=== PATIENT | male | born 1990 | race Caucasian/White ===

== ENCOUNTER 2016-10-27 09:16 | Emergency (ER) | payer OTHER ==
[2016-10-27 09:30] VITALS: BP 147/77
--- NOTE | 2016-10-27 10:32 | XRAY Preliminary Report ---
Exam: XR Ankle 3 View LT IMPRESSION: Nondisplaced oblique fibular fracture with moderate soft tissue swelling. [facility] SITE ID: [id number]
--- NOTE | 2016-10-27 10:34 | XRAY Report ---
EXAM: LEFT ANKLE RADIOGRAPHY EXAM DATE: 10/27/2016 10:13 AM. CLINICAL HISTORY: Ankle pain post injury. COMPARISON: None. TECHNIQUE: 3 views. FINDINGS: Bones: There is an oblique fibular fracture. Joints: Ankle mortise is grossly aligned. Soft Tissues: Moderate swelling is noted about the ankle. IMPRESSION: Nondisplaced oblique fibular fracture with moderate soft tissue swelling. [facility] Referring Provider Line: [phone] SITE ID: [id number]
[2016-10-27] MEDS ORDERED: IBUPROFEN 800 MG TABLET PO STA (11:07)
--- NOTE | 2016-10-27 11:07 | ED Physician Documentation ---
PD HPI LOWER EXT INJURY - Stated complaint Stated Complaint: LT ANKLE INJURY - Chief complaint Chief Complaint: Ext Problem - History obtained from History obtained from: Patient - History of Present Illness PD HPI LOW EXT INJURY LOCATION: Left, Ankle Type of injury: Fall, Twist Where injury occurred: Home Timing - onset: Last night Worsened by: Moving, Palpating, Other (Weightbearing) Associated symptoms: Swelling. No: Weakness, Numbness Similar symptoms before: Has not had sx before - Additional information Additional information: The patient is a 26-year-old male who slipped on stairs last night twisting his left ankle when he "landed awkwardly." He denies any other injuries. He complains of pain when trying to weight-bear. Review of Systems Constitutional: denies: Fever Cardiac: denies: Chest pain / pressure Respiratory: denies: Dyspnea GI: denies: Abdominal Pain, Vomiting Musculoskeletal: reports: Joint pain (left ankle), Extremity swelling (left ankle). denies: Back pain Neurologic: denies: Focal weakness, Numbness, Head injury PD PAST MEDICAL HISTORY - Past Medical History Past Medical History: No - Past Surgical History Past Surgical History: No - Present Medications Home Medications: Ambulatory Orders Medication Instructions Recorded Confirmed HYDROcod/ACETAM 5/325 [[place] 5/325] 1 - 2 ea PO Q6H PRN #20 tablet 10/27/16 - Allergies Allergies/Adverse Reactions: Allergies Allergy/AdvReac Type Severity Reaction Status Date / Time No Known Drug Allergies Allergy Verified 10/27/16 09:30 - Social History Does the pt smoke?: No Smoking Status: Never smoker - Immunizations Immunizations are current?: Yes PD ED PE NORMAL - Vitals Vital signs reviewed: Yes (Mild hypertension initially.) - General General: Alert and oriented X 3, Well developed/nourished - HEENT HEENT: Atraumatic - Neck Neck: No bony TTP - Respiratory Respiratory: No respiratory distress - Back Back: No spinal TTP - Derm Derm: No rash - Extremities Extremities: No calf tenderness / cord, Other (There is swelling at the lateral aspect of the left ankle, with associated tenderness to palpation. There is no tenderness at the fifth metatarsal base, or the proximal fibula. There is mild tenderness to palpation at the medial malleolus, but without swelling. Distal neurovascular is intact.) - Neuro Neuro: Alert and oriented X 3, No motor deficit, No sensory deficit Results - Vitals Vitals: Oxygen O2 Source Room air - Rads (name of study) Left ankle Radiology: Prelim report reviewed, EMP read contemporaneously, See rad report ( Nondisplaced oblique fibular fracture with moderate soft tissue swelling.) Procedures - Splint (location) left lower extremity Splint applied by: Physician Type of splint: Fiberglass, Short leg, Posterior, Stirrup Other: Patient tolerated well, No complications, Neurovascular intact, Crutches provided PD MEDICAL DECISION MAKING - ED course Complexity details: reviewed results, re-evaluated patient, considered differential, d/w patient ED course: The patient's presentation is significant for a nondisplaced oblique left distal fibular fracture. Treatment in the emergency department included administration of ibuprofen 800 mg orally, and application of a fiberglass posterior and stirrup splint. Crutches were dispensed. He is being discharged with prescription for Vicodin, 20 tablets. I discussed with him the results of imaging study, importance of orthopedic follow-up, as well as potentially worrisome signs or symptoms that should prompt reevaluation in the emergency department. Departure - Departure Disposition: 01 Home, Self Care Clinical Impression: Closed fracture of left distal fibula Qualifiers: Encounter type: initial encounter Fracture morphology: other fracture Qualified Code(s): S82.832A - Other fracture of upper and lower end of left fibula, initial encounter for closed fracture Condition: Stable Instructions: ED Cast Care Fiberglass, ED Fx Lower Ext Follow-Up: [facility] [Provider Group] Prescriptions: HYDROcod/ACETAM 5/325 [[place] 5/325] 1 - 2 ea PO Q6H PRN #20 tablet PRN Reason: Pain Comments: Keep your left leg elevated as much of the time as possible. Apply icepack intermittently for the next 4 or 5 days. Keep the splint clean and dry. Use ibuprofen, up to 800 mg 3 times daily for 10 inflammatory effect. You can use Vicodin as prescribed if needed for pain. Use crutches when walking. [place] Call today to schedule an appointment. Return to the emergency department if you develop increasing pain despite the pain medication, or otherwise worsening symptoms. Discharge Date/Time: 10/27/16 11:23
[2016-10-27] MEDS ORDERED: IBUPROFEN 800 MG TABLET PO ONE (11:18)
== END 2016-10-27 11:23 | disposition home or self-care (01) ==
LOC: ED 09:16
DX: S82.832A Other fracture of upper and lower end of left fibula, initial encounter for closed fracture (principal); W10.9XXA Fall (on) (from) unspecified stairs and steps, initial encounter; X50.1XXA Overexertion from prolonged static or awkward postures, initial encounter
CPT/HCPCS: 29515; 73610; 99283; A9270

== ENCOUNTER 2016-11-16 06:00 | Day surgery (SDC) | payer OTHER ==
[2016-11-16] MEDS ORDERED: ACETAMINOPHEN 1,000 MG/100 ML 100 ML IV ONE (06:37)
[2016-11-16] MEDS ORDERED: CELECOXIB 100 MG CAPSULE PO ONE (06:38)
[2016-11-16] MEDS ORDERED: ceFAZolin 2 GM/50 ML 50 ML IV ONE (06:38)
[2016-11-16] MEDS ORDERED: LACTATED RINGERS 1,000 ML IV ONE ×3 (06:43→10:39)
[2016-11-16] MEDS ORDERED: ONDANSETRON 4 MG/2 ML VIAL IVP ONE (07:45)
[2016-11-16] MEDS ORDERED: PROPOFOL 200 MG/20 ML VIAL IVP ONE (07:45)
[2016-11-16] MEDS ORDERED: ROPIVACAINE 0.5% PF 20 ML AMPULE EP ONE (07:45)
[2016-11-16] MEDS ORDERED: fentaNYL 250 MCG/5 ML VIAL IVP ONE (07:45)
[2016-11-16] MEDS ORDERED: MIDAZOLAM 2 MG/2 ML VIAL IVP ONE (07:45)
[2016-11-16] MEDS ORDERED: DEXAMETHASONE 4 MG/ML VIAL IVP ONE (07:45)
[2016-11-16] MEDS ORDERED: LIDOCAINE-MPF 2% 5 ML VIAL IM ONE (07:45)
[2016-11-16] MEDS ORDERED: ROCURONIUM 50 MG/5 ML VIAL IVP ONE (07:45)
[2016-11-16] MEDS ORDERED: BUPIVACAINE 0.25% PF 30 ML VIAL SUBQ ONE ×2 (07:49→10:25)
[2016-11-16] MEDS ORDERED: HYDROmorphone 1 MG/ML SYRINGE ONE (10:38)
[2016-11-16] MEDS ORDERED: oxyCOD/ACETAMIN 5 MG/325 MG TABLET PO ONE (11:45)
== END 2016-11-16 06:01 | disposition home or self-care (01) ==
PROC: 0QSK04Z Reposition Left Fibula with Internal Fixation Device, Open Approach (ICD-10-PCS; principal; 2016-11-16 07:30)
DX: S82.832A Other fracture of upper and lower end of left fibula, initial encounter for closed fracture (principal); W10.9XXA Fall (on) (from) unspecified stairs and steps, initial encounter; Y92.133 Barracks on military base as the place of occurrence of the external cause
CPT/HCPCS: 27792; 73600; 73610; A9270; C1713; J0131; J0690; J1170; J3010; J7120

== ENCOUNTER 2017-05-24 15:18 | Emergency (ER) | payer OTHER ==
[2017-05-24 15:25] VITALS: BP 142/89
--- NOTE | 2017-05-24 17:11 | ED Physician Documentation ---
PD HPI LOWER EXT INJURY - Stated complaint Stated Complaint: LEFT KNEE INJ - Chief complaint Chief Complaint: Ext Problem - History obtained from History obtained from: Patient - History of Present Illness PD HPI LOW EXT INJURY LOCATION: Left, Knee Type of injury: Other (he had gone on longer hike of 11 miles with some up and down hill, and felt pain gradually onset while downhill hiking and this has persisted with walking and steps mostly.). No: Fall, Blunt / blow Timing - onset: How many days ago (5) Timing - duration: Days (5) Timing - details: Gradual onset, Still present, Waxing and waning Improved by: Rest Worsened by: Palpating, Other (stepping up and down mostly) Associated symptoms: No: Weakness, Numbness, Swelling Similar symptoms before: Has not had sx before Recently seen: Not recently seen Review of Systems Constitutional: denies: Fever, Chills Skin: denies: Rash, Lesions Musculoskeletal: denies: Extremity swelling Neurologic: denies: Focal weakness, Numbness PD PAST MEDICAL HISTORY - Past Medical History Cardiovascular: None Respiratory: None Endocrine/Autoimmune: None GI: GERD : None HEENT: None Psych: None Musculoskeletal: Other Derm: None - Past Surgical History Past Surgical History: No - Present Medications Home Medications: Ambulatory Orders Medication Instructions Recorded Confirmed Naproxen [Naprosyn] 500 mg PO BID PRN #20 tablet 05/24/17 Tramadol HCl 50 mg PO Q6H PRN #20 tablet 05/24/17 - Allergies Allergies/Adverse Reactions: Allergies Allergy/AdvReac Type Severity Reaction Status Date / Time No Known Drug Allergies Allergy Verified 05/24/17 15:25 - Social History Does the pt smoke?: No Smoking Status: Never smoker - Immunizations Immunizations are current?: Yes PD ED PE NORMAL - Vitals Vital signs reviewed: Yes - General General: Alert and oriented X 3, No acute distress, Well developed/nourished - Derm Derm: Normal color, Warm and dry, No rash - Extremities Extremities: Other (no effusion. He has point tenderness medial anterior knee over the pes anserine bursa. No effusion. Legiament and meniscal stress testing without laxity nor pain. ) - Neuro Neuro: No motor deficit, No sensory deficit Results - Vitals Vitals: Oxygen O2 Source Room air PD MEDICAL DECISION MAKING - ED course Complexity details: considered differential (the pain came after overuse hiking and no abrupt injury. It is hurting in area of pes bursa and no laxity/pain on main knee ligament testing. Consider meniscal pain as well, but negative meniscal stress testing. ), d/w patient Departure - Departure Disposition: 01 Home, Self Care Clinical Impression: Pes anserinus bursitis of left knee Condition: Stable Record reviewed to determine appropriate education?: Yes Instructions: ED Bursitis Follow-Up: [facility] [Provider Group] Prescriptions: Naproxen [Naprosyn] 500 mg PO BID PRN #20 tablet PRN Reason: Pain Tramadol HCl 50 mg PO Q6H PRN #20 tablet PRN Reason: Pain Comments: Use a knee brace when up and around ambulating. No vigorous activity such as hiking or running for several days at least. You can set the knee brace to range from full extension to 30 flexion. This should provide some support for the muscle tendon and decrease irritation of the bursa. Use naproxen twice daily for the next 7-10 days. Add Tylenol or tramadol if needed for pain. Follow-up with primary care or orthopedics if not improved over the next 5-6 days. Your main ligaments (collateral and cruciates) and meniscus do not feel injured, which is a good thing. Discharge Date/Time: 05/24/17 17:46
[2017-05-24] MEDS ORDERED: NAPROXEN 250 MG TABLET PO STA (17:28)
[2017-05-24] MEDS ORDERED: NAPROXEN 250 MG TABLET PO ONE (17:35)
== END 2017-05-24 17:46 | disposition home or self-care (01) ==
LOC: ED 15:18
DX: M71.562 Other bursitis, not elsewhere classified, left knee (principal)
CPT/HCPCS: 99283; A9270; 87491; 87591

== ENCOUNTER 2017-11-01 06:14 | Emergency (ER) | payer OTHER ==
[2017-11-01 06:23] VITALS: BP 130/76
[2017-11-01 06:32] LABS: BILIRUBIN,URINE NEGATIVE (NEGATIVE); GLUCOSE, URINE (UA) NEGATIVE (NEGATIVE); KETONES,URINE (UA) NEGATIVE (NEGATIVE); LEUKOCYTE ESTERASE, URINE NEGATIVE (NEGATIVE); NITRITE,URINE NEGATIVE (NEGATIVE); OCCULT BLOOD,URINE NEGATIVE (NEGATIVE); PROTEIN,URINE NEGATIVE (NEGATIVE); UROBILINOGEN,URINE 0.2 (NORMAL) E.U./dL (NORMAL)
[2017-11-01 06:33] LABS: CLARITY,URINE CLEAR (CLEAR)
--- NOTE | 2017-11-01 06:51 | ED Physician Documentation ---
PD HPI BACK PAIN - Stated complaint Stated Complaint: body aches - Chief complaint Chief Complaint: Back Pain - History obtained from History obtained from: Patient - History of Present Illness Timing - onset: Last night Timing - duration: Hours Timing - details: Gradual onset, Still present Location: Mid Quality: Pain, Spasm, Aching Associated symptoms: No: Fever, Weakness, Numbness, Incontinent of urine, Unable to urinate, Hematuria, Incontinent of stool Improves with: Rest, Position Worsened by: Movement, Twisting Contributing factors: Other (snowboarding 2 days ago) Similar symptoms before: Diagnosis (back strain) Recently seen: Not recently seen - Additional information Additional information: 27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 He did do some snowboarding 2 days ago and he did not think he injured himself significantly at the time and was not having pain in his back.He does not otherwise feel ill and is has no other specific symptoms. Review of Systems Constitutional: reports: Myalgias. denies: Fever, Chills Eyes: denies: Decreased vision Ears: denies: Ear pain Nose: denies: Congestion Throat: denies: Sore throat Cardiac: denies: Chest pain / pressure, Palpitations Respiratory: denies: Dyspnea, Cough GI: reports: Nausea, Vomiting (once last night similar to prior). denies: Abdominal Pain : denies: Dysuria, Frequency, Incontinent Skin: denies: Rash Musculoskeletal: reports: Back pain. denies: Neck pain, Extremity pain Neurologic: denies: Generalized weakness, Focal weakness, Numbness PD PAST MEDICAL HISTORY - Past Medical History Cardiovascular: None Respiratory: None Endocrine/Autoimmune: None GI: GERD : None HEENT: None Psych: None Musculoskeletal: Other Derm: None - Past Surgical History Past Surgical History: Yes - Present Medications Home Medications: Ambulatory Orders Medication Instructions Recorded Confirmed Naproxen [Naprosyn] 500 mg PO BID PRN #20 tablet 05/24/17 Tramadol HCl 50 mg PO Q6H PRN #20 tablet 05/24/17 - Allergies Allergies/Adverse Reactions: Allergies Allergy/AdvReac Type Severity Reaction Status Date / Time No Known Drug Allergies Allergy Verified 05/24/17 15:25 - Social History Does the pt smoke?: No Smoking Status: Never smoker Does the pt drink ETOH?: Yes Does the pt have substance abuse?: No - Immunizations Immunizations are current?: Yes - POLST Patient has POLST: No PD ED PE NORMAL - Vitals Vital signs reviewed: Yes (low grade temp elevation ) - General General: Alert and oriented X 3, No acute distress, Well developed/nourished - HEENT HEENT: Atraumatic, PERRL, EOMI, Ears normal, Other (dry mucous membranes. ) - Neck Neck: Supple, no meningeal sign, No bony TTP - Cardiac Cardiac: RRR, No murmur - Respiratory Respiratory: No respiratory distress, Clear bilaterally - Abdomen Abdomen: Soft, Non tender - Back Back: No CVA TTP, No spinal TTP, Other (There is tenseness to the paraspinous muscles in the mid back over the TL junction. This is bilateral and with mild tenderness reproducing the patient's symptoms. 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, No motor deficit, No sensory deficit, Normal speech Eye Opening: Spontaneous Motor: Obeys Commands Verbal: Oriented GCS Score: 15 - Psych Psych: Normal mood, Normal affect Results - Vitals Vitals: Vital Signs - 24 hr 11/01/17 06:18 Temperature 99.4 C H Heart Rate 91 Respiratory 16 Rate Blood Pressure 130/76 O2 Saturation 95 Oxygen O2 Source Room air - Labs Labs: Laboratory Tests 11/01/17 06:20 Urine Color YELLOW Urine Clarity CLEAR Urine pH 6.0 Ur Specific [place] 1.020 Urine Protein NEGATIVE Urine Glucose (UA) NEGATIVE Urine Ketones NEGATIVE Urine Occult Blood NEGATIVE Urine Nitrite NEGATIVE Urine Bilirubin NEGATIVE Urine Urobilinogen 0.2 (NORMAL) Ur Leukocyte Esterase NEGATIVE Ur Microscopic Review NOT INDICATED Urine Culture Comments NOT INDICATED Procedures - IVC sono (time) 0648 Bedside IVC sono: IVC measures (cm) (1.44), IVC collapsed c insp (cm) (complete) , Dehydration (mild est <1 liter deficit) PD MEDICAL DECISION MAKING - ED course Complexity details: reviewed old records, reviewed results, re-evaluated patient , considered differential, d/w patient ED course: 27-year-old male with pain in the TL junction and the paraspinous muscles appears to have some muscle spasm there he has had recent physical activity that could easily have induced this and he is mildly dehydrated. Here in the emergency department he is administered dexamethasone and is encouraged to hydrate and he will use ibuprofen for the pain. Departure - Departure Disposition: 01 Home, Self Care Clinical Impression: Dehydration Acute lumbar myofascial strain Qualifiers: Encounter type: initial encounter Qualified Code(s): S39.012A - Strain of muscle, fascia and tendon of lower back, initial encounter Condition: Stable Instructions: ED Spasm Back No Trauma, ED Dehydration Follow-Up: [facility] [Provider Group] Forms: Activity restrictions
[2017-11-01] MEDS ORDERED: DEXAMETHASONE 10 MG/ML VIAL PO STA (06:55)
[2017-11-01] MEDS ORDERED: CHERRY SYRUP 10 ML UDC PO ONE (07:05)
== END 2017-11-01 07:01 | disposition home or self-care (01) ==
LOC: ED 06:14
DX: E86.0 Dehydration (principal); S39.012A Strain of muscle, fascia and tendon of lower back, initial encounter; X50.1XXA Overexertion from prolonged static or awkward postures, initial encounter; Y93.23 Activity, snow (alpine) (downhill) skiing, snowboarding, sledding, tobogganing and snow tubing; Y92.39 Other specified sports and athletic area as the place of occurrence of the external cause; K21.9 Gastro-esophageal reflux disease without esophagitis
CPT/HCPCS: 81003; 99283; 99284; A9270; 81001; 87086

== ENCOUNTER 2017-12-25 12:25 | Emergency (ER) | payer OTHER ==
[2017-12-25 12:31] VITALS: BP 169/92
--- NOTE | 2017-12-25 12:43 | ED Physician Documentation ---
PD HPI ABD PAIN - Stated complaint Stated Complaint: ABD PX - Chief complaint Chief Complaint: Abd Pain - History obtained from History obtained from: Patient - History of Present Illness Timing - onset: Last night, Yesterday Timing - details: Gradual onset, Still present, Waxing and waning Quality: Aching, Pain Location: RLQ Radiation: Right flank Improved by: No: Eating, Laying still, Position Worsened by: No: Eating, Moving, Breathing, Position, Palpation Associated symptoms: No: Fever, Nausea, Vomiting, Diarrhea, Constipation, Dysuria, Hematuria, Near syncope / syncope, Loss of appetite Similar symptoms before: Has not had sx before Recently seen: Not recently seen Review of Systems Constitutional: denies: Fever, Chills Nose: denies: Rhinorrhea / runny nose, Congestion Throat: denies: Sore throat Cardiac: denies: Chest pain / pressure Respiratory: denies: Cough GI: denies: Nausea, Vomiting, Diarrhea : denies: Dysuria, Frequency, Discharge, Testicular pain Skin: denies: Rash, Lesions Musculoskeletal: denies: Back pain Neurologic: denies: Near syncope PD PAST MEDICAL HISTORY - Past Medical History Past Medical History: No Cardiovascular: None Respiratory: None Endocrine/Autoimmune: None GI: GERD : None HEENT: None Psych: None Musculoskeletal: Other Derm: None - Past Surgical History Past Surgical History: Yes - Present Medications Home Medications: Ambulatory Orders Medication Instructions Recorded Confirmed No Known Home Medications [No 12/25/17 12/25/17 Known Home Medications] - Allergies Allergies/Adverse Reactions: Allergies Allergy/AdvReac Type Severity Reaction Status Date / Time No Known Drug Allergies Allergy Verified 05/24/17 15:25 - Social History Does the pt smoke?: No Smoking Status: Never smoker Does the pt drink ETOH?: Yes Does the pt have substance abuse?: No - Immunizations Immunizations are current?: Yes - POLST Patient has POLST: No PD ED PE NORMAL - Vitals Vital signs reviewed: Yes - General General: Alert and oriented X 3, No acute distress, Well developed/nourished - HEENT HEENT: Moist mucous membranes, Pharynx benign - Neck Neck: Supple, no meningeal sign, No adenopathy - Cardiac Cardiac: RRR, No murmur - Respiratory Respiratory: Clear bilaterally - Abdomen Abdomen: Normal bowel sounds, Soft, Non tender, Non distended, No organomegaly - Male Male : Deferred - Rectal Rectal: Deferred - Back Back: No CVA TTP - Derm Derm: Normal color, Warm and dry, No rash - Extremities Extremities: No deformity, Normal ROM s pain, No calf tenderness / cord Results - Vitals Vitals: Vital Signs - 24 hr 12/25/17 12:29 Temperature 36.5 C Heart Rate 74 Respiratory 16 Rate Blood Pressure 169/92 H O2 Saturation 97 Oxygen O2 Source Room air - Labs Labs: Laboratory Tests 12/25/17 12:35 Urine Color YELLOW Urine Clarity CLEAR Urine pH 5.5 Ur Specific [place] <=1.005 Urine Protein NEGATIVE Urine Glucose (UA) NEGATIVE Urine Ketones NEGATIVE Urine Occult Blood NEGATIVE Urine Nitrite NEGATIVE Urine Bilirubin NEGATIVE Urine Urobilinogen 0.2 (NORMAL) Ur Leukocyte Esterase NEGATIVE Ur Microscopic Review NOT INDICATED Urine Culture Comments NOT INDICATED - Rads (name of study) KUB CT Radiology: Prelim report reviewed (no acute findings, no stones. Incidental atrophy right kidney (chronic). ) PD MEDICAL DECISION MAKING - ED course Complexity details: reviewed results, considered differential, d/w patient Departure - Departure Clinical Impression: Abdominal pain Qualifiers: Abdominal location: right lower quadrant Qualified Code(s): R10.31 - Right lower quadrant pain Condition: Stable Record reviewed to determine appropriate education?: Yes Instructions: ED Abdominal Pain Unkn Cause Follow-Up: [facility] [Provider Group] Comments: Drink lots of fluids. Tylenol or ibuprofen if needed for pains or discomfort. Your scan and urine test appears normal (with the exception of a chronic atrophy of your right kidney which is of no consequence but just comment on it because it was in the radiology report). I presume the discomfort you are having is muscular and should improve over the next couple of days. Forms: Activity restrictions
[2017-12-25 12:53] LABS: BILIRUBIN,URINE NEGATIVE (NEGATIVE); GLUCOSE, URINE (UA) NEGATIVE (NEGATIVE); KETONES,URINE (UA) NEGATIVE (NEGATIVE); LEUKOCYTE ESTERASE, URINE NEGATIVE (NEGATIVE); NITRITE,URINE NEGATIVE (NEGATIVE); OCCULT BLOOD,URINE NEGATIVE (NEGATIVE); PH,URINE 5.5 PH (5.0-7.5); PROTEIN,URINE NEGATIVE (NEGATIVE); UROBILINOGEN,URINE 0.2 (NORMAL) E.U./dL (NORMAL)
[2017-12-25 12:55] LABS: CLARITY,URINE CLEAR (CLEAR)
[2017-12-25] MEDS ORDERED: ACETAMINOPHEN 325 MG TABLET PO STA (12:55)
[2017-12-25] MEDS ORDERED: IBUPROFEN 600 MG TABLET PO STA (12:55)
--- NOTE | 2017-12-25 13:43 | CT Preliminary Report ---
Exam: CT KUB IMPRESSION: 1. Moderate chronic atrophy of the right kidney. 2. No urolithiasis or hydronephrosis. [facility] SITE ID: [id number]
--- NOTE | 2017-12-25 13:43 | CT Report ---
EXAM: CT ABDOMEN AND PELVIS (CT KUB) EXAM DATE: 12/25/2017 01:25 PM. CLINICAL HISTORY: Right side/flank pain since last night. COMPARISONS: None. TECHNIQUE: Routine axial helical CT imaging was performed through the abdomen and pelvis without IV c ontrast. Reconstructions: Coronal and sagittal. In accordance with CT protocol optimization, one or more of the following dose reduction techniques w ere utilized for this exam: automated exposure control, adjustment of mA and/or KV based on patient s ize, or use of iterative reconstructive technique. FINDINGS: Lung Bases: Unremarkable. Right Kidney/Ureter: There is moderate atrophy of the right kidney. No right renal stone or ureter st one. No hydronephrosis or perinephric fluid collection. Left Kidney/Ureter: The left kidney is normal in size. No renal or ureteral stone. No hydronephrosis. Other Solid Organs: Noncontrast images of the solid organs are grossly unremarkable. Gallbladder/Bile Ducts: Unremarkable. Peritoneal Cavity: No free fluid, free air or raquel adenopathy. Bowel is grossly unremarkable. Pelvic Organs: No bladder stones or wall thickening. Noncontrast images of the visualized pelvic orga ns are unremarkable. Vasculature: Unremarkable. Other: None. IMPRESSION: 1. Moderate chronic atrophy of the right kidney. 2. No urolithiasis or hydronephrosis. [facility] Referring Provider Line: [phone] SITE ID: [id number]
== END 2017-12-25 14:05 | disposition home or self-care (01) ==
LOC: ED 12:25
DX: R10.31 Right lower quadrant pain (principal); N26.1 Atrophy of kidney (terminal)
CPT/HCPCS: 74176; 81003; 99283; A9270; 81001; 87086